=== PATIENT | female | born 1975 | race Two or more races ===

== ENCOUNTER 2020-02-10 12:27 | Emergency (ER) | payer MEDICAID, SELFPAY ==
[~2020-02-10] VITALS: Ht 172.7 cm; Wt 71.0 kg
[2020-02-10] MEDS ORDERED: QUET25TA PO (12:33)
[2020-02-10] MEDS ORDERED: DIVA125T2 PO (12:33)
[2020-02-10 13:01] LABS: BASOPHILS % 0.5 % (0.0-2.0); EOSINOPHILS % 0.8 % (0.0-5.0); HEMATOCRIT. 34.7 % (36.0-48.0); HEMOGLOBIN. 11.8 g/dL (12.0-16.0); LYMPHOCYTES % 15.4 % (20.0-50.0); MEAN CORPUSCULAR HEMOGLOBIN 31.8 pg (28.0-32.0); MEAN CORPUSCULAR VOLUME 93.5 fL (81.0-99.0); MEAN PLATELET VOLUME 10.7 fl (7.4-10.4); MONOCYTES % 9.2 % (2.0-8.0); NEUTROPHILS % 74.1 % (40.0-76.0); PLATELET 116 x1000/uL (130-400); RED BLOOD CELL COUNT 3.71 mill/uL (4.2-5.4); RED CELL DISTRIBUTION WIDTH 13.4 % (11.6-14.6)
[2020-02-10 13:21] LABS: CHLORIDE 106 mEq/L (98-107)
[2020-02-10 13:25] LABS: ETHANOL BLOOD < 10 mg/dL
[2020-02-10 13:27] LABS: *AMPHETAMINES SCREEN URINE NEGATIVE (NEGATIVE); *BARBITURATES SCREEN URINE NEGATIVE (NEGATIVE); *BENZODIAZEPINES SCREEN URINE NEGATIVE (NEGATIVE); *COCAINE SCREEN URINE NEGATIVE (NEGATIVE)
[2020-02-10 13:28] LABS: METHADONE URINE SCREEN NEGATIVE (NEGATIVE); OPIATES URINE SCREEN NEGATIVE (NEGATIVE); PHENCYCLIDINE URINE SCREEN NEGATIVE (NEGATIVE)
[2020-02-10 13:30] LABS: CANNABINOID URINE SCREEN NEGATIVE (NEGATIVE)
[2020-02-10] MEDS ORDERED: LORAZEPAM 0.5MG TABLET PO NR (14:15)
[2020-02-10] MEDS ORDERED: ZIPRASIDONE MESYLATE 20MG/VIAL IM NR (14:15)
[2020-02-10] MEDS: QUETIAPINE FUMARATE 50MG TABLET PO SCH ×2 (20:00→21:00)
[2020-02-10] MEDS: HALOPERIDOL LACTATE 5MG/ML VIAL IM PRN (21:08)
[2020-02-10] MEDS ORDERED: LORAZEPAM 2MG/ML CPJ IM ONE (23:45)
[2020-02-10] MEDS ORDERED: HALOPERIDOL LACTATE 5MG/ML VIAL IM ONE (23:45)
[2020-02-11] MEDS: HALOPERIDOL LACTATE 5MG/ML VIAL IM PRN ×2 (05:12→19:25)
[2020-02-11] MEDS: QUETIAPINE FUMARATE 50MG TABLET PO SCH ×4 (09:50→21:58)
[2020-02-12] MEDS: QUETIAPINE FUMARATE 50MG TABLET PO SCH ×4 (09:00→21:00)
[2020-02-13] MEDS: QUETIAPINE FUMARATE 50MG TABLET PO SCH (09:26)
[2020-02-13 13:05] VITALS: BP 128/60
== END 2020-02-13 13:30 ==
LOC: ER 12:27
DX: F23 Brief psychotic disorder (principal); R45.851 Suicidal ideations; Z75.1 Person awaiting admission to adequate facility elsewhere; Z78.1 Physical restraint status; Z59.0 Homelessness
CPT/HCPCS: 36415; 80048; 80305; 80307; 80320; 80329; 81025; 85025; 93005; 96372; 99285; C9803; J1630; J2060; J3486; U0003; Z7610; G0480